=== PATIENT | male | born 1990 | race Caucasian/White ===

== ENCOUNTER 2020-03-04 11:30 | Emergency (ER) | payer OTHER ==
[~2020-03-04] VITALS: Ht 185.4 cm; Wt 73.8 kg
[2020-03-04 11:37] VITALS: BP 144/65
[2020-03-04] MEDS ORDERED: BACI1PAC7 TOP (13:18)
[2020-03-04] MEDS ORDERED: bacitracin 15gm ointment TP ONE (13:20)
== END 2020-03-04 13:36 | disposition home or self-care (01) ==
LOC: ER 11:31
DX: S39.848A Other specified injuries of external genitals, initial encounter (principal); N48.89 Other specified disorders of penis; Z79.2 Long term (current) use of antibiotics; X58.XXXA Exposure to other specified factors, initial encounter; Y93.89 Activity, other specified; Y92.89 Other specified places as the place of occurrence of the external cause; Y99.8 Other external cause status
CPT/HCPCS: 99282